=== PATIENT | male | born 1975 | race Caucasian/White ===

== ENCOUNTER 2016-05-24 12:02 | Emergency (ER) | payer SELFPAY ==
[2016-05-24] MEDS ORDERED: Acetaminophen/Codeine 30-300mg Tablet ONE (13:06)
--- NOTE | 2016-05-24 13:20 | RAD ---
LEFT KNEE FOUR VIEWS: History: Walking backwards and tripped over horse. Left knee pain. FINDINGS: Post op changes and metallic hardware seen in the proximal tibia. No acute fracture or dislocation is identified. No joint effusion is seen. The metallic hardware also appears intact. POS: [facility]
== END 2016-05-24 13:50 | disposition home or self-care (01) ==
LOC: MADERS 12:02
DX: S89.92XA Unspecified injury of left lower leg, initial encounter (principal); F17.210 Nicotine dependence, cigarettes, uncomplicated; Z79.899 Other long term (current) drug therapy; X58.XXXA Exposure to other specified factors, initial encounter

== ENCOUNTER 2017-06-16 12:53 | Emergency (ER) | payer SELFPAY ==
[2017-06-16] MEDS ORDERED: Promethazine HCl 25 MG/ML VIAL ONE (13:40)
[2017-06-16] MEDS ORDERED: Morphine 10 MG/ML VIAL ONE (13:40)
--- NOTE | 2017-06-16 14:34 | CT ---
CT LUMBAR SPINE WITHOUT CONTRAST: HISTORY: Pain, severe low back pain. COMPARISON: None. FINDINGS: Aortoiliac contour is normal. No aneurysmal dilatation. No retroperitoneal adenopathy. No hydronephrosis. The paraspinal musculature is normal. No acute displaced fracture or malalignment of the lumbar spine. The levels are as follows: L1-2: No significant neural foraminal or spinal canal narrowing. Minimal narrowing of the disk. L2-3: Mild facet arthropathy. Low-grade circumferential disk bulge. No significant neural foramina l narrowing. The spinal canal measures approximately a centimeter. L3-4: Mild facet arthrosis. Mild circumferential disk bulge. Mild ligamentum flavum hypertrophy. There is mild left and right-sided neural foraminal narrowing. The spinal canal measures approximate ly a centimeter. L4-5: Moderate degenerative disk space height loss. Circumferential disk bulge, moderate to large. There is moderate facet arthrosis and ligamentum flavum hypertrophy. Moderate bilateral neural fora raj narrowing. The spinal canal appears to be nearer to approximately 5-6 mm. L5-S1: Moderate circumferential disk bulge. Mild ligamentum flavum hypertrophy and facet arthropath y. There is moderate bilateral neural foraminal narrowing. The spinal canal measures 6-7 mm IMPRESSION: 1. Mild to moderate spondylosis as described above, worse at L4-5 and L5-S1. 2. No acute fracture or malalignment. No listhesis. POS: [facility]
== END 2017-06-16 14:37 | disposition home or self-care (01) ==
LOC: MADERS 12:53
DX: S39.012A Strain of muscle, fascia and tendon of lower back, initial encounter (principal); M51.36 Other intervertebral disc degeneration, lumbar region; M51.37 Other intervertebral disc degeneration, lumbosacral region; E78.5 Hyperlipidemia, unspecified; F17.210 Nicotine dependence, cigarettes, uncomplicated; Z79.899 Other long term (current) drug therapy; X50.1XXA Overexertion from prolonged static or awkward postures, initial encounter
CPT/HCPCS: 72131; 96372; J2270; J2550

== ENCOUNTER 2017-12-10 16:12 | Emergency (ER) | payer SELFPAY ==
[~2017-12-10 16:12] MED LIST: Sodium Chloride 0.9% 1,000 ML BAG ONE
[2017-12-10] MEDS ORDERED: Dexamethasone 10 MG/ML VIAL ONE (16:48)
[2017-12-10] MEDS ORDERED: Metoclopramide HCl 10 MG/2 ML VIAL ONE (16:48)
[2017-12-10] MEDS ORDERED: diphenhydrAMINE 50 MG/ML VIAL ONE (16:48)
[2017-12-10 16:57] LABS: #Basophils 0.1 thou/uL (0.0-0.2); #Eosinphils 0.1 thou/uL (0.0-0.7); #Lymphocytes 1.6 thou/uL (1.20-3.40); #Monocytes 0.8 thou/uL (0.11-0.59); #Neutrophils 5.3 thou/uL (1.40-6.50); %Basophils 1.5 % (0.0-1.0); %Eosinophils 1.1 % (0.0-10.0); %Lymphocytes 20.6 % (21.0-51.0); %Monocytes 10.1 % (0.0-10.0); %Neutrophils 66.7 % (42.0-75.0); Hemoglobin 14.7 g/dL (14.0-18.0); Mean Corpuscular HGB CONC 33.9 g/dL (32.0-36.0); Mean Corpuscular Hemoglobin 32.4 pg (27.0-31.0); Mean Corpuscular Volume 95.7 fL (78.0-98.0); Mean Platelet Volume 8.5 fL (7.4-10.4); Platelet Count 192 thou/uL (130-400); RBC Distribution Width 11.6 % (11.5-14.5); Red Blood Cell (RBC) Count 4.53 mill/uL (4.70-6.10); White Blood Cell (WBC) Count 7.9 thou/uL (4.8-10.8)
[2017-12-10 17:02] LABS: INR-International Normal Ratio 1.2
[2017-12-10 17:09] LABS: ALT (SGPT) 20 U/L (8-55); AST (SGOT) 25 U/L (5-34); Albumin 4.3 g/dL (3.5-5.0); Alkaline Phosphatase 63 U/L (40-150); Anion Gap 15 mmol/L (10-20); BUN (Urea Nitrogen) 8 mg/dL (8.9-20.6); Bilirubin, Total 0.8 mg/dL (0.2-1.2); Calc. Creatinine Clearance 0 mL/min (70-130); Calcium 9.3 mg/dL (7.8-10.44); Carbon Dioxide 20 mmol/L (22-29); Chloride 108 mmol/L (98-107); Estimated GFR-MDRD Greater than 90; Glucose 71 mg/dL (70-105); Protein, Total 7.3 g/dL (6.0-8.3); Sodium 139 mmol/L (136-145)
--- NOTE | 2017-12-10 18:38 | CT ---
NONCONTRAST CT HEAD: 12/10/2017 HISTORY: Headache. COMPARISON: None available. FINDINGS: There is no evidence of a hemorrhage, acute infarction, mass effect, or midline shift. The ventricul ar system is normal in size, shape, and position. Mucosal thickening is present within the bilateral ethmoid air cells and each frontal sinus. The mastoid air cells are clear. The calvarial structure s are intact. IMPRESSION: 1. No acute intracranial abnormalities demonstrated. 2. Sinus disease. POS: [facility]
== END 2017-12-10 18:15 | disposition home or self-care (01) ==
LOC: MADERS 16:12
DX: G43.909 Migraine, unspecified, not intractable, without status migrainosus (principal); E78.5 Hyperlipidemia, unspecified; F17.210 Nicotine dependence, cigarettes, uncomplicated; Z79.899 Other long term (current) drug therapy
CPT/HCPCS: 70450; 80053; 85025; 85610; 96361; 96374; 96375; J1100; J1200; J2765; J7050

== ENCOUNTER 2017-12-12 11:54 | Emergency (ER) | payer SELFPAY ==
[2017-12-12] MEDS ORDERED: diphenhydrAMINE 50 MG/ML VIAL ONE (12:27)
[2017-12-12] MEDS ORDERED: Ketorolac Tromethamine 30 MG/ML VIAL ONE (12:27)
== END 2017-12-12 13:56 | disposition home or self-care (01) ==
LOC: MADERS 11:54
DX: G44.209 Tension-type headache, unspecified, not intractable (principal); E78.5 Hyperlipidemia, unspecified; F17.210 Nicotine dependence, cigarettes, uncomplicated
CPT/HCPCS: 96361; 96374; 96375; 99406; J1200; J1885; J7050

== ENCOUNTER 2018-01-28 09:35 | Emergency (ER) | payer SELFPAY ==
[2018-01-28] MEDS ORDERED: Sodium Chloride 0.9% 1,000 ML BAG ONE (19:56)
== END 2018-01-28 11:43 | disposition home or self-care (01) ==
LOC: MADERS 09:35
DX: T15.01XA Foreign body in cornea, right eye, initial encounter (principal); E78.5 Hyperlipidemia, unspecified; F17.210 Nicotine dependence, cigarettes, uncomplicated; Z79.899 Other long term (current) drug therapy
CPT/HCPCS: 65222; J7050

== ENCOUNTER 2018-07-11 08:40 | Emergency (ER) | payer SELFPAY ==
[2018-07-11 10:09] LABS: Bilirubin Negative (Negative); Blood, Urine Negative (Negative); Clarity Clear (Clear); Glucose, Urine (Dipstick) Negative (Negative); Leukocyte Negative (Negative); Nitrite Negative (Negative); Protein, Urine (Dipstick) Negative (Neg-Trace); Urobilinogen 0.2 mg/dL (0.2-1.0); pH, Urine 5.5 (5.0-9.0)
[2018-07-11 10:11] LABS: #Basophils 0.1 thou/uL (0.0-0.2); #Eosinphils 0.1 thou/uL (0.0-0.7); #Lymphocytes 1.3 thou/uL (1.20-3.40); #Monocytes 0.9 thou/uL (0.11-0.59); #Neutrophils 4.7 thou/uL (1.40-6.50); %Basophils 0.9 % (0.0-1.0); %Eosinophils 1.6 % (0.0-10.0); %Monocytes 12.9 % (0.0-10.0); %Neutrophils 66.6 % (42.0-75.0); Hemoglobin 14.1 g/dL (14.0-18.0); Mean Corpuscular HGB CONC 32.7 g/dL (32.0-36.0); Mean Corpuscular Hemoglobin 31.8 pg (27.0-31.0); Mean Corpuscular Volume 97.2 fL (78.0-98.0); Mean Platelet Volume 8.2 fL (7.4-10.4); Platelet Count 160 thou/uL (130-400); RBC Distribution Width 12.1 % (11.5-14.5); Red Blood Cell (RBC) Count 4.43 mill/uL (4.70-6.10)
[2018-07-11 10:25] LABS: ALT (SGPT) 26 U/L (8-55); AST (SGOT) 25 U/L (5-34); Albumin 4.1 g/dL (3.5-5.0); Alkaline Phosphatase 65 U/L (40-150); Anion Gap 13 mmol/L (10-20); BUN (Urea Nitrogen) 9 mg/dL (8.9-20.6); Bilirubin, Total 0.9 mg/dL (0.2-1.2); Calc. Creatinine Clearance 0 mL/min (70-130); Calcium 8.6 mg/dL (7.8-10.44); Carbon Dioxide 24 mmol/L (22-29); Chloride 106 mmol/L (98-107); Estimated GFR-MDRD Greater than 90; Globulin 2.7 g/dL (2.4-3.5); Glucose 90 mg/dL (70-105); Potassium 4.2 mmol/L (3.5-5.1); Protein, Total 6.8 g/dL (6.0-8.3); Sodium 139 mmol/L (136-145)
--- NOTE | 2018-07-11 12:00 | CT ---
CT abdomen and pelvis with IV and oral contrast HISTORY: Left lower quadrant pain. FINDINGS: Mild linear scarring at the left lung base.. The liver, spleen, kidneys, adrenal glands, an d pancreas are unremarkable. Stranding within the fat of the left lower quadrant abuts the medial wall of the lower left colon and upper sigmoid colon. It also surrounds a well-circumscribed oval area of omental fat that is 2.5 cm in length. No diverticula of the colon are apparent. Minimal free free fluid in the right lower qu adrant. Within the sigmoid colon, there are 2 short segment focal areas of linear filling defect which are no nspecific and possibly related to stool. IMPRESSION: Left lower quadrant inflammation, centered in and predominantly involving omental fat. It only abuts the medial wall of the colon at this location. The inflammation is favored to be related to omental fat abnormality, such as infarction or other cause of inflammation, rather than ar ise from the colon. No diverticula of the colon are evident. Please consider CT follow-up in 4-6 weeks to evaluate for resolution.
[2018-07-11] MEDS ORDERED: HYDROcodone/Acetaminophen 5/325 mg Tablet ONE (12:38)
[2018-07-11] MEDS ORDERED: Iopamidol 370 76% 100 ML VIAL ONE (13:05)
== END 2018-07-11 12:43 | disposition home or self-care (01) ==
LOC: MADERS 08:40
DX: K66.8 Other specified disorders of peritoneum (principal); E78.5 Hyperlipidemia, unspecified; F17.210 Nicotine dependence, cigarettes, uncomplicated; Z79.899 Other long term (current) drug therapy
CPT/HCPCS: 74177; 80053; 81003; 83605; 85025; Q9967

== ENCOUNTER 2018-08-21 13:24 | Emergency (ER) | payer SELFPAY ==
[2018-08-21] MEDS ORDERED: Morphine 10 MG/ML VIAL ONE ×2 (13:49→14:55)
--- NOTE | 2018-08-21 14:05 | RAD ---
RADIOGRAPH LUMBAR SPINE 3 VIEWS: 08/21/18 HISTORY: 43-year-old male with acute traumatic low back pain and left lumbar radiculopathy due to fall. FINDINGS: There are five lumbar type vertebrae. Straightening of the normal curvature. Mild disc space narrowin g at L4-5 and L5-S1. No spondylolisthesis. No scoliosis. IMPRESSION: 1. No compression fracture. 2. Mild degenerative disc changes at L4-5 and L5-S1. 3. Loss of lordosis suggestive of muscle spasm. JN [] POS: [facility]
== END 2018-08-21 16:10 | disposition home or self-care (01) ==
LOC: MADERS 13:24
DX: M54.40 Lumbago with sciatica, unspecified side (principal); E78.5 Hyperlipidemia, unspecified; F17.210 Nicotine dependence, cigarettes, uncomplicated; Z79.899 Other long term (current) drug therapy
CPT/HCPCS: 72100; 96372; J2270

== ENCOUNTER 2018-08-30 11:57 | Emergency (ER) | payer SELFPAY ==
[2018-08-30] MEDS ORDERED: Ketorolac Tromethamine 60 MG/2 ML VIAL ONE (12:51)
[2018-08-30] MEDS ORDERED: Morphine 4 MG/ML VIAL ONE (12:51)
[2018-08-30 13:08] LABS: Bilirubin Small (Negative); Blood, Urine Negative (Negative); Clarity Clear (Clear); Glucose, Urine (Dipstick) Negative (Negative); Leukocyte Negative (Negative); Nitrite Negative (Negative); Protein, Urine (Dipstick) Negative (Neg-Trace); Urobilinogen 0.2 mg/dL (0.2-1.0); pH, Urine 5.5 (5.0-9.0)
[2018-08-30] MEDS ORDERED: HYDROcodone/Acetaminophen 10/325 mg Tablet ONE (13:48)
== END 2018-08-30 14:50 | disposition home or self-care (01) ==
LOC: MADERS 11:57
DX: M54.5 Low back pain (principal); E78.5 Hyperlipidemia, unspecified; F17.210 Nicotine dependence, cigarettes, uncomplicated
CPT/HCPCS: 81003; 96372; J1885; J2270

== ENCOUNTER 2019-04-01 10:10 | Emergency (ER) | payer SELFPAY ==
[2019-04-01] MEDS ORDERED: methylPREDNISolone Sod Succ/PF 125 MG/2 ML VIAL ONE (11:00)
[2019-04-01] MEDS ORDERED: Metoclopramide HCl 10 MG/2 ML VIAL ONE (11:00)
[2019-04-01] MEDS ORDERED: Phentolamine Mesylate 5 MG VIAL ONE (11:00)
[2019-04-01] MEDS ORDERED: diphenhydrAMINE 50 MG/ML VIAL ONE (11:00)
[2019-04-01] MEDS ORDERED: Ketorolac Tromethamine 30 MG/ML VIAL ONE (11:00)
[2019-04-01 11:16] LABS: #Basophils 0.1 thou/uL (0.0-0.2); #Eosinphils 0.2 thou/uL (0.0-0.7); #Lymphocytes 1.3 thou/uL (1.20-3.40); #Monocytes 0.4 thou/uL (0.11-0.59); #Neutrophils 3.5 thou/uL (1.40-6.50); %Basophils 1.1 % (0.0-1.0); %Eosinophils 3.5 % (0.0-10.0); %Lymphocytes 23.5 % (21.0-51.0); %Neutrophils 63.9 % (42.0-75.0); Hemoglobin 14.9 g/dL (14.0-18.0); Mean Corpuscular HGB CONC 31.5 g/dL (32.0-36.0); Mean Corpuscular Hemoglobin 31.2 pg (27.0-31.0); Mean Corpuscular Volume 99.3 fL (78.0-98.0); Mean Platelet Volume 8.2 fL (7.4-10.4); Platelet Count 225 thou/uL (130-400); RBC Distribution Width 11.4 % (11.5-14.5); Red Blood Cell (RBC) Count 4.78 mill/uL (4.70-6.10); White Blood Cell (WBC) Count 5.5 thou/uL (4.8-10.8)
[2019-04-01 11:22] LABS: ALT (SGPT) 26 U/L (8-55); Alkaline Phosphatase 77 U/L (40-110); Anion Gap 13 mmol/L (10-20); BUN (Urea Nitrogen) 10 mg/dL (8.9-20.6); Bilirubin, Total 0.4 mg/dL (0.2-1.2); Calc. Creatinine Clearance 0 mL/min (70-130); Calcium 8.8 mg/dL (7.8-10.44); Carbon Dioxide 22 mmol/L (22-29); Chloride 109 mmol/L (98-107); Estimated GFR-MDRD Greater than 90; Globulin 3.4 g/dL (2.4-3.5); Glucose 93 mg/dL (70-105); Potassium 4.6 mmol/L (3.5-5.1); Protein, Total 7.4 g/dL (6.0-8.3); Sodium 139 mmol/L (136-145)
[2019-04-01 11:24] LABS: INR-International Normal Ratio 1.1; Prothrombin Time 13.7 SEC (12.0-14.7)
[2019-04-01 11:29] LABS: AST (SGOT) 29 U/L (5-34)
== END 2019-04-01 11:48 | disposition home or self-care (01) ==
LOC: MADERS 10:10
DX: R51 Headache (principal); E78.5 Hyperlipidemia, unspecified; F17.210 Nicotine dependence, cigarettes, uncomplicated
CPT/HCPCS: 80053; 85025; 85610; 96374; 96375; J1200; J1885; J2760; J2765; J2930

== ENCOUNTER 2019-05-18 19:22 | Emergency (ER) | payer SELFPAY ==
[2019-05-18] MEDS ORDERED: Nitroglycerin 2% Ointment 1 INCH/1 GM Packet ONE (19:55)
[2019-05-18] MEDS ORDERED: Aspirin Chewable 81 MG TAB ONE (19:55)
[2019-05-18 20:01] LABS: #Basophils 0.1 thou/uL (0.0-0.2); #Eosinphils 0.1 thou/uL (0.0-0.7); #Lymphocytes 2.4 thou/uL (1.20-3.40); #Monocytes 0.8 thou/uL (0.11-0.59); %Eosinophils 1.6 % (0.0-10.0); %Monocytes 9.9 % (0.0-10.0); %Neutrophils 59.5 % (42.0-75.0); Hemoglobin 15.8 g/dL (14.0-18.0); Mean Corpuscular HGB CONC 32.5 g/dL (32.0-36.0); Mean Corpuscular Hemoglobin 31.4 pg (27.0-31.0); Mean Corpuscular Volume 96.4 fL (78.0-98.0); Mean Platelet Volume 8.3 fL (7.4-10.4); Platelet Count 219 thou/uL (130-400); RBC Distribution Width 11.5 % (11.5-14.5); Red Blood Cell (RBC) Count 5.04 mill/uL (4.70-6.10); White Blood Cell (WBC) Count 8.5 thou/uL (4.8-10.8)
--- NOTE | 2019-05-18 20:14 | RAD ---
EXAM: Two views chest PROVIDED CLINICAL HISTORY: Shortness of breath COMPARISON: 08/25/2010 FINDINGS: Cardiac and mediastinal silhouette appears within normal limits. Lungs appear free of significant opa city. No pleural fluid or pneumothorax apparent. IMPRESSION: No evidence for an acute cardiopulmonary process.
[2019-05-18 20:20] LABS: ALT (SGPT) 46 U/L (8-55); AST (SGOT) 38 U/L (5-34); Albumin 4.6 g/dL (3.5-5.0); Alkaline Phosphatase 66 U/L (40-110); Anion Gap 18 mmol/L (10-20); BUN (Urea Nitrogen) 11 mg/dL (8.9-20.6); Bilirubin, Total 0.6 mg/dL (0.2-1.2); Calc. Creatinine Clearance 0 mL/min (70-130); Calcium 9.2 mg/dL (7.8-10.44); Carbon Dioxide 18 mmol/L (22-29); Chloride 104 mmol/L (98-107); Estimated GFR-MDRD Greater than 90; Globulin 3.3 g/dL (2.4-3.5); Glucose 118 mg/dL (70-105); Lipase 70 U/L (8-78); Potassium 3.4 mmol/L (3.5-5.1); Protein, Total 7.9 g/dL (6.0-8.3); Sodium 137 mmol/L (136-145)
== END 2019-05-18 21:38 | disposition short-term general hospital (02) ==
LOC: MADERS 19:22
DX: R06.02 Shortness of breath (principal); R07.9 Chest pain, unspecified; R42 Dizziness and giddiness; I25.10 Atherosclerotic heart disease of native coronary artery without angina pectoris; I10 Essential (primary) hypertension; E78.5 Hyperlipidemia, unspecified; F17.210 Nicotine dependence, cigarettes, uncomplicated; Z79.82 Long term (current) use of aspirin; Z79.899 Other long term (current) drug therapy
CPT/HCPCS: 71046; 80053; 83690; 83880; 84484; 85025; 85379; 93005

== ENCOUNTER 2019-09-24 13:25 | Emergency (ER) | payer SELFPAY ==
[2019-09-24 14:23] LABS: #Basophils 0.1 thou/uL (0.0-0.2); #Eosinphils 0.1 thou/uL (0.0-0.7); #Lymphocytes 1.3 thou/uL (1.20-3.40); #Monocytes 0.6 thou/uL (0.11-0.59); #Neutrophils 4.1 thou/uL (1.40-6.50); %Basophils 1.1 % (0.0-1.0); %Eosinophils 1.3 % (0.0-10.0); %Lymphocytes 21.4 % (21.0-51.0); %Neutrophils 67.1 % (42.0-75.0); Hemoglobin 13.6 g/dL (14.0-18.0); Mean Corpuscular Hemoglobin 31.5 pg (27.0-31.0); Mean Corpuscular Volume 98.4 fL (78.0-98.0); Mean Platelet Volume 8.5 fL (7.4-10.4); Platelet Count 202 thou/uL (130-400); RBC Distribution Width 12.3 % (11.5-14.5); Red Blood Cell (RBC) Count 4.33 mill/uL (4.70-6.10)
[2019-09-24 14:37] LABS: ALT (SGPT) 29 U/L (8-55); AST (SGOT) 31 U/L (5-34); Albumin 4.2 g/dL (3.5-5.0); Alkaline Phosphatase 77 U/L (40-110); Anion Gap 13 mmol/L (10-20); BUN (Urea Nitrogen) 18 mg/dL (8.9-20.6); Bilirubin, Total 0.4 mg/dL (0.2-1.2); Calc. Creatinine Clearance 0 mL/min (70-130); Calcium 8.6 mg/dL (7.8-10.44); Carbon Dioxide 21 mmol/L (22-29); Chloride 110 mmol/L (98-107); Estimated GFR-MDRD Greater than 90; Globulin 2.8 g/dL (2.4-3.5); Glucose 139 mg/dL (70-105); Sodium 140 mmol/L (136-145)
--- NOTE | 2019-09-24 15:03 | RAD ---
Exam: Chest one view HISTORY:Pain Comparison: 07/10/2019 FINDINGS: Cardiac silhouette: Normal Aorta: Unremarkable Pulmonary vessels: Normal Costophrenic angles: Clear LUNGS: No masses or consolidation. There are chronic lung parenchymal changes. Pneumothorax: None Osseous abnormalities: None IMPRESSION: No acute cardiopulmonary process.
[2019-09-24] MEDS ORDERED: Aspirin Chewable 81 MG TAB ONE (15:07)
== END 2019-09-24 16:07 | disposition home or self-care (01) ==
LOC: MADERS 13:25
DX: R07.9 Chest pain, unspecified (principal); I10 Essential (primary) hypertension; I25.10 Atherosclerotic heart disease of native coronary artery without angina pectoris; E78.5 Hyperlipidemia, unspecified; F17.210 Nicotine dependence, cigarettes, uncomplicated; Z79.82 Long term (current) use of aspirin; Z79.899 Other long term (current) drug therapy
CPT/HCPCS: 71045; 80053; 84484; 85025; 93005

== ENCOUNTER 2020-03-24 09:15 | Emergency (ER) | payer SELFPAY ==
[2020-03-24] MEDS ORDERED: Nitroglycerin 0.4 MG TAB 1 EACH ONE ×2 (09:39→15:11)
[2020-03-24] MEDS ORDERED: Aspirin 325 MG TAB ONE (09:39)
[2020-03-24 09:44] LABS: #Basophils 0.1 thou/uL (0.0-0.2); #Eosinphils 0.1 thou/uL (0.0-0.7); #Lymphocytes 1.2 thou/uL (1.20-3.40); #Monocytes 0.6 thou/uL (0.11-0.59); #Neutrophils 4.6 thou/uL (1.40-6.50); %Lymphocytes 18.4 % (21.0-51.0); %Monocytes 9.4 % (0.0-10.0); %Neutrophils 69.2 % (42.0-75.0); Hemoglobin 15.8 g/dL (14.0-18.0); Mean Corpuscular HGB CONC 32.6 g/dL (32.0-36.0); Mean Corpuscular Hemoglobin 32.3 pg (27.0-31.0); Mean Corpuscular Volume 98.9 fL (78.0-98.0); Mean Platelet Volume 9.2 fL (7.4-10.4); Platelet Count 163 thou/uL (130-400); RBC Distribution Width 11.5 % (11.5-14.5); Red Blood Cell (RBC) Count 4.88 mill/uL (4.70-6.10); White Blood Cell (WBC) Count 6.6 thou/uL (4.8-10.8)
--- NOTE | 2020-03-24 09:47 | RAD ---
EXAM: Portable chest PROVIDED CLINICAL HISTORY: Chest pain COMPARISON: 09/24/2019 FINDINGS: Cardiac and mediastinal silhouette unchanged in appearance. No focal consolidation, pleural fluid or pneumothorax evident. IMPRESSION: No evidence for an acute cardiopulmonary process.
[2020-03-24 10:02] LABS: ALT (SGPT) 33 U/L (8-55); AST (SGOT) 34 U/L (5-34); Albumin 4.2 g/dL (3.5-5.0); Alkaline Phosphatase 69 U/L (40-110); Anion Gap 14 mmol/L (10-20); BUN (Urea Nitrogen) 9 mg/dL (8.9-20.6); Bilirubin, Total 0.7 mg/dL (0.2-1.2); Calc. Creatinine Clearance 0 mL/min (70-130); Calcium 8.5 mg/dL (7.8-10.44); Carbon Dioxide 24 mmol/L (22-29); Chloride 107 mmol/L (98-107); Globulin 3.1 g/dL (2.4-3.5); Glucose 100 mg/dL (70-105); Potassium 3.8 mmol/L (3.5-5.1); Protein, Total 7.3 g/dL (6.0-8.3); Sodium 141 mmol/L (136-145)
== END 2020-03-24 13:15 | disposition home or self-care (01) ==
LOC: MADERS 09:15
DX: I25.119 Atherosclerotic heart disease of native coronary artery with unspecified angina pectoris (principal); I10 Essential (primary) hypertension; E78.5 Hyperlipidemia, unspecified; F17.210 Nicotine dependence, cigarettes, uncomplicated; Z79.82 Long term (current) use of aspirin; Z79.899 Other long term (current) drug therapy
CPT/HCPCS: 71045; 80053; 84484; 85025; 93005